=== PATIENT | female | born 1990 | race African-American/Black ===

== ENCOUNTER 2017-01-18 18:36 | Emergency (ER) | payer SELFPAY ==
[~2017-01-18] VITALS: Ht 152.4 cm; Wt 50.0 kg
[~2017-01-18 18:36] MED LIST: BACT PO; BAYEMIS; GLUCOMETER XX; GLUCOMTESTSTRIPS XX; LEVEMIR SQ; LEVO100T4 PO; NOVORP2 SQ; PRED20 PO
[2017-01-18 18:38] VITALS: BP 107/73; PULSE 78; RESP 18; TEMP 97.7; O2SAT 97
[2017-01-18] MEDS ORDERED: LEVO100T5 PO (20:13)
--- NOTE | 2017-01-18 20:16 | PD ---
HPI Chief Complaint: Medication Refill Request Time Seen by Provider: 20:05 Travel History International Travel<30 days: No Contact w/Intl Traveler<30days: No Traveled to known affect area: No History of Present Illness HPI 26 year old female presents requesting medication refill. She is requesting a refill of her levothyroxine which she takes for hypothyroidism. She does not remember when she ran out of it. She is uncertain of her dose but per chart review the last time she was here in January 2016 she was on 100 g of Synthroid on a daily basis. She has no medical complaints at this time. PFSH Past Medical History Arthritis: No Asthma: Yes Autoimmune Disease: No Blood Disorders: No Anxiety: No Depression: No Heart Rhythm Problems: No Cancer: No Cardiovascular Problems: No High Cholesterol: No Chemotherapy: No Chest Pain: Yes Congestive Heart Failure: No COPD: No Cerebrovascular Accident: No Cystic Fibrosis: No Diabetes: Yes Diminished Hearing: No Endocrine: Yes Gastrointestinal Disorders: No GERD: No Glaucoma: No Gout: Yes (denies) Genitourinary: No Headaches: No Hepatitis: No Hiatal Hernia: No Hypertension: No Immune Disorder: No Kidney Stones: No Musculoskeletal: No Neurologic: No Psychiatric: No Reproductive: Yes Respiratory: Yes Migraines: No Myocardial Infarction: No Radiation Therapy: Yes (FOR THYROID) Renal Failure: No Seizures: No Sickle Cell Disease: No Sleep Apnea: No Thyroid Disease: Yes Ulcer: No PNEUMOCCOCAL Vaccine (Year): 2 ?: Not : 2 Para: 2 Past Surgical History Abdominal Surgery: No AICD: No Appendectomy: No Arteriovenous Shunt: No Cardiac Surgery: No Section: Yes Cholecystectomy: No Ear Surgery: No Endocrine Surgery: No Eye Surgery: No Genitourinary Surgery: No Gynecologic Surgery: No Insulin Pump: No Joint Replacement: No Neurologic Surgery: No Oral Surgery: No Pacemaker: No Thoracic Surgery: No Other Surgery: No Social History Alcohol Use: No Tobacco Use: Yes (2 cig daily) Substance Use: No Allergies-Medications (Allergen,Severity, Reaction): Coded Allergies: Seafood (Verified Allergy, Severe, ITCHING, 12/19/14) denies allergy at this time Reported Meds & Prescriptions Reported Meds & Active Scripts Active Deltasone 20 Mg Tab (Prednisone) 20 Mg Tab 40 Mg PO DAILY Levemir (Insulin Detemir) Inj 10 Units SQ HS 30 Days Levothyroxine 100 mcg (Levothyroxine Sodium) 100 Mcg Tab 100 Mcg PO DAILY Bactrim (Trimethoprim/Sulfamethoxazole) 80 Mg/400 Mg Tab 2 Tab PO BID 3 Days Pablo Microlet Lancets (Lancets) Lancets Mis Box Glucometer Test Strips (Glucomteststrips) Box 1 Box XX Glucometer Kit 1 Kit XX Reported Novolin R (Insulin Human Regular) 100 Units/Ml Inj 5-15 Units SQ DIRECTED IF B/S 150-200=5 UNITS, 201-300=10 UNITS,301-400=15 UNITS Review of Systems General / Constitutional: Positive: Other (requests medication refill) Cardiovascular: No: Chest Pain or Discomfort, Syncope Respiratory: No: Shortness of Breath Physical Exam Narrative GENERAL: Well-developed well-nourished female in no acute distress SKIN: Warm and dry. HEAD: Atraumatic. Normocephalic. EYES: Pupils equal and round. No scleral icterus. No injection or drainage. ENT: No nasal bleeding or discharge. Mucous membranes pink and moist. NECK: Trachea midline. No JVD. CARDIOVASCULAR: Regular rate and rhythm. No murmur appreciated. RESPIRATORY: No accessory muscle use. Clear to auscultation. Breath sounds equal bilaterally. GASTROINTESTINAL: Abdomen soft, non-tender, nondistended. Hepatic and splenic margins not palpable. NEUROLOGICAL: Awake and alert. No obvious cranial nerve deficits. Motor grossly within normal limits. Normal speech. PSYCHIATRIC: Appropriate mood and affect; insight and judgment normal. Data Data Last Documented VS Vital Signs Date Time Temp Pulse Resp B/P Pulse Ox O2 Delivery O2 Flow Rate FiO2 01/18/17 18:38 97.7 78 18 107/73 97 [facility] Medical Decision Making Medical Screen Exam Complete: Yes Emergency Medical Condition: Yes Medical Record Reviewed: Yes Differential Diagnosis Medication refill, hypothyroidism, medication noncompliance Narrative Course The patient will be given a refill of her Synthroid however she is strongly encouraged to follow-up with her primary care physician for long-term management of this chronic condition. Diagnosis Primary Impression: Medication refill Additional Instructions: Follow-up with a primary care physician. Hypothyroidism is a chronic illness that will require chronic managing. Return for any emergent medical conditions. Med/Other Pt SpecificInfo: Prescription(s) given Scripts Levothyroxine 100 Mcg [id number] Mcg PO DAILY #60 TAB Ref 0 Prov:Cassi Pan DO 01/18/17 Disposition: 01 DISCHARGE HOME Condition: Stable Dano Dangelo Jan 18, 2017 20:15
[2017-01-18] MEDS ORDERED: NOVORP2 SQ (20:21)
[2017-01-18] MEDS ORDERED: LEVEMIR SQ (20:21)
== END 2017-01-18 21:03 | disposition home or self-care (01) ==
LOC: NETRI 18:36
DX: E03.9 Hypothyroidism, unspecified (principal); E11.9 Type 2 diabetes mellitus without complications; Z79.4 Long term (current) use of insulin; Z76.0 Encounter for issue of repeat prescription
CPT/HCPCS: 99281

== ENCOUNTER 2017-10-16 19:21 | Emergency (ER) | payer SELFPAY ==
[~2017-10-16] VITALS: Ht 149.9 cm; Wt 55.0 kg
[~2017-10-16 19:21] MED LIST changes: -BACT PO; -BAYEMIS; -GLUCOMETER XX; -GLUCOMTESTSTRIPS XX; -LEVO100T4 PO; +LEVO100T5 PO; -PRED20 PO
[2017-10-16 19:24] VITALS: BP 98/67; PULSE 100; RESP 16; TEMP 98; O2SAT 93
[2017-10-16] MEDS ORDERED: LANTUS2P SQ ×2 (20:52→21:03)
[2017-10-16] MEDS ORDERED: INSULIN DETEMIR 100 UNITS/ML VIAL SQ STA (20:57)
[2017-10-16] MEDS ORDERED: NOVORP2 SQ (21:03)
--- NOTE | 2017-10-16 21:03 | PD ---
HPI Chief Complaint: Medication Refill Request Time Seen by Provider: 20:47 Travel History International Travel<30 days: No Contact w/Intl Traveler<30days: No Traveled to known affect area: No History of Present Illness HPI 27 year-old woman, presents emergency department requesting refill on her insulin because she ran out. She's having pharmacy issues. Denies any complaints. History of diabetes. She reports also start metformin as well. Otherwise complaint. Last had her insulin at 8 AM this morning. No recent illness or injury. No other complaints. History Past Medical History Narrative Medical Hypothyroidism Diabetes Tetanus Vaccination: Unknown PNEUMOCCOCAL Vaccine (Year): 2 LMP: 10/09/2017 : 2 Para: 2 Social History Alcohol Use: No Tobacco Use: Yes (2 cig daily) Allergies-Medications (Allergen,Severity, Reaction): Coded Allergies: Fish Containing Products (Unverified Allergy, Severe, ITCHING, 10/16/17) denies allergy at this time Reported Meds & Prescriptions Reported Meds & Active Scripts Active Levothyroxine (Levothyroxine Sodium) 100 Mcg Tab 100 Mcg PO DAILY Reported Lantus Inj (Insulin Glargine) 1,000 Unit/10 Ml Vial 1 Units SQ HS Novolin R Inj (Insulin Human Regular) 1,000 Unit/10 Ml Vial 2-10 Units SQ TIDAC PRN IMPORTANT TO EAT A MEAL WITHIN 30-60 MINUTES OF DOSING Levemir Inj (Insulin Detemir) 1,000 unit/ 10 ML Vial 10 Units SQ HS Do not mix with any other Insulin. Review of Systems Except as stated in HPI: all other systems reviewed are Neg Physical Exam Narrative GENERAL: Well-appearing 27 year-old woman, no acute distress. SKIN: Focused skin assessment warm/dry. HEAD: Atraumatic. Normocephalic. EYES: Pupils equal and round. No scleral icterus. No injection or drainage. ENT: No nasal bleeding or discharge. Mucous membranes pink and moist. NECK: Trachea midline. No JVD. CARDIOVASCULAR: Regular rate and rhythm. No murmur appreciated. RESPIRATORY: No accessory muscle use. Clear to auscultation. Breath sounds equal bilaterally. GASTROINTESTINAL: Abdomen soft, non-tender, nondistended. Hepatic and splenic margins not palpable. MUSCULOSKELETAL: No obvious deformities. No clubbing. No cyanosis. No edema. NEUROLOGICAL: Awake and alert. No obvious cranial nerve deficits. Motor grossly within normal limits. Normal speech. PSYCHIATRIC: Appropriate mood and affect; insight and judgment normal. Data Data Last Documented VS Vital Signs Date Time Temp Pulse Resp B/P (MAP) Pulse Ox O2 Delivery O2 Flow Rate FiO2 10/16/17 19:24 98.0 100 16 98/67 (77) 93 Room Air Orders Orders Insulin Detemir Inj (Levemir Inj) (10/16/17 20:57) [facility] Medical Decision Making Medical Screen Exam Complete: Yes Emergency Medical Condition: Yes Differential Diagnosis Diabetes, out of medications, infection, other Narrative Course Medical decision making parents 27 year-old woman, medications, due to see her primary doctor on Wednesday. We'll give her a refill on her insulin. Diagnosis Primary Impression: Insulin dependent diabetes mellitus Additional Instructions: Continue insulin as previously prescribed. Return to the emergency department for any new or worsening symptoms. Med/Other Pt SpecificInfo: Prescription(s) given Scripts Insulin Glargine Inj (Lantus Inj) 1,000 Unit/10 Ml Vial 30 UNITS SQ HS for Blood Sugar Management, #1 VIAL 0 Refills Prov: Bentley Mendez MD 10/16/17 Insulin Human Regular Inj (Novolin R Inj) 1,000 Unit/10 Ml Vial 2-10 UNITS SQ TIDAC Y for Blood Sugar Management, #10 ML 0 Refills IMPORTANT TO EAT A MEAL WITHIN 30-60 MINUTES OF DOSING Prov: Bentley Mendez MD 10/16/17 Disposition: 01 DISCHARGE HOME Condition: Stable Bentley Mendez MD Oct 16, 2017 21:03
== END 2017-10-16 21:12 | disposition home or self-care (01) ==
LOC: NEPE 19:21
DX: E11.9 Type 2 diabetes mellitus without complications (principal); E03.9 Hypothyroidism, unspecified; F17.210 Nicotine dependence, cigarettes, uncomplicated; Z79.4 Long term (current) use of insulin; Z79.899 Other long term (current) drug therapy
CPT/HCPCS: 96372

== ENCOUNTER 2018-01-04 14:16 | Observation (INO) | payer MEDICAID ==
[~2018-01-04] VITALS: Ht 149.9 cm; Wt 45.5 kg
[~2018-01-04 14:16] MED LIST changes: +LANTUS2P SQ
[2018-01-04 14:30] VITALS: BP 98/57; PULSE 100; RESP 18; TEMP 98.9; O2SAT 99
[2018-01-04 15:31] LABS: BACTERIA, URINE MOD /hpf; BILIRUBIN, URINE NEG (NEG); BLOOD, URINE TRACE (NEG); GLUCOSE,URINE 1000 mg/dL (NEG); KETONE, URINE 80 mg/dL (NEG); NITRITE,URINE POS (NEG); PH, URINE 5.5 (5.0-8.5); SQUAMOUS EPITHELIAL CELL URINE 73 /hpf (0-5); TRANSITIONAL EPI CELLS, URINE <1 /hpf; URINE COLOR LIGHT-YELLOW (YELLW/STRAW); URINE LEUKOCYTE ESTERASE SMALL (NEG)
[2018-01-04 15:33] LABS: AST (GOT) 6 U/L (15-37); BICARBONATE 26.4 MEQ/L (21.0-32.0); BLOOD UREA NITROGEN 13 MG/DL (7-18); CALCIUM 9.1 MG/DL (8.5-10.1); CHLORIDE 92 MEQ/L (98-107); CREATININE 1.18 MG/DL (0.50-1.00); GLOMERULAR FILTRATION RATE 66 ML/MIN (>89); GLUCOSE,RANDOM 393 MG/DL (74-106); SODIUM (NA) 130 MEQ/L (136-145)
[2018-01-04 15:35] LABS: AUTOMATED NEUTROPHIL # 12.5 TH/MM3 (1.8-7.7); BASOPHIL # 0.1 TH/MM3 (0-0.2); BASOPHIL % 0.5 % (0.0-2.0); EOSINOPHIL % 0.3 % (0.0-4.0); HEMATOCRIT 29.3 % (35.0-46.0); HEMOGLOBIN 10.3 GM/DL (11.6-15.3); LYMPH % 9.4 % (9.0-44.0); LYMPHOCYTE # 1.4 TH/MM3 (1.0-4.8); MEAN CELL VOLUME 87.3 FL (80.0-100.0); MEAN CORPUSCULAR HEMOGLOBIN 30.7 PG (27.0-34.0); MEAN CORPUSCULAR HGB CONC 35.2 % (32.0-36.0); MEAN PLATELET VOLUME 7.7 FL (7.0-11.0); MONO % 4.5 % (0.0-8.0); MONOCYTE # 0.7 TH/MM3 (0-0.9); NEUT % 85.3 % (16.0-70.0); PLATELET COUNT 541 TH/MM3 (150-450); RED BLOOD COUNT 3.35 MIL/MM3 (4.00-5.30); RED CELL DISTRIBUTION WIDTH 15.1 % (11.6-17.2); WHITE BLOOD COUNT 14.6 TH/MM3 (4.0-11.0)
[2018-01-04 15:44] LABS: ALKALINE PHOSPHATASE 190 U/L (45-117); ALT (GPT) 11 U/L (10-53); FREE T4 0.69 NG/DL (0.76-1.46); TOTAL BILIRUBIN ADULT 0.5 MG/DL (0.2-1.0); TOTAL PROTEIN 7.8 GM/DL (6.4-8.2)
[2018-01-04 17:05] VITALS: BP 90/55; PULSE 84; RESP 18; TEMP 98.1; O2SAT 100
[2018-01-04] MEDS ORDERED: INSULIN HUMAN REGULAR 1,000 UNITS/10 ML VIAL IV PUSH ONE (17:30)
[2018-01-04] MEDS ORDERED: SODIUM CHLOR 0.9% 1000 ML INJ 1,000 ML IV ONE ×2 (17:30)
--- NOTE | 2018-01-04 17:39 | PD ---
HPI Chief Complaint: Medical Clearance Time Seen by Provider: 17:25 Travel History International Travel<30 days: No Contact w/Intl Traveler<30days: No Traveled to known affect area: No History of Present Illness HPI 27-year-old female with history of hypothyroidism and type 1 diabetes presents to the emergency room requesting medication refill. Patient states she has been using a dirty needle since last time she came here because her insurance will not allow any refills. States she has been struggling for the past 2 years to find a primary care doctor to accept her insurance and has had difficulty controlling her diabetes but states she will not change her insurance. Reports body aches from head to toe that are "10/10" and headache. She denies abdominal pain, nausea, vomiting, dysuria, urgency, frequency, fever , or chills. Patient is a poor historian. She became cantankerous throughout the history and refused to answer anymore questions stating "I am sick and that' s all I'm going to say." Her last menstrual cycle was in November. PFSH Past Medical History Arthritis: No Asthma: Yes Autoimmune Disease: No Blood Disorders: No Anxiety: No Depression: No Heart Rhythm Problems: No Cancer: No Cardiovascular Problems: No High Cholesterol: No Chemotherapy: No Chest Pain: Yes Congestive Heart Failure: No COPD: No Cerebrovascular Accident: No Cystic Fibrosis: No Diabetes: Yes Patient Takes Glucophage: No Diminished Hearing: No Endocrine: Yes Gastrointestinal Disorders: No GERD: No Glaucoma: No Gout: Yes (denies) Genitourinary: No Headaches: No Hepatitis: No Hiatal Hernia: No Hypertension: No Immune Disorder: No Kidney Stones: No Musculoskeletal: No Neurologic: No Psychiatric: No Reproductive: Yes Respiratory: Yes Immunizations Current: Yes Migraines: No Myocardial Infarction: No Radiation Therapy: Yes (FOR THYROID) Renal Failure: No Seizures: No Sickle Cell Disease: No Sleep Apnea: No Thyroid Disease: Yes Ulcer: No Tetanus Vaccination: < 5 Years Influenza Vaccination: No PNEUMOCCOCAL Vaccine (Year): 2 ?: Unknown LMP: NOV 2017 : 2 Para: 2 Past Surgical History Surgical History: No Previous Surgery Abdominal Surgery: No AICD: No Appendectomy: No Arteriovenous Shunt: No Cardiac Surgery: No Section: Yes Cholecystectomy: No Ear Surgery: No Endocrine Surgery: No Eye Surgery: No Genitourinary Surgery: No Gynecologic Surgery: No Insulin Pump: No Joint Replacement: No Neurologic Surgery: No Oral Surgery: No Pacemaker: No Thoracic Surgery: No Other Surgery: No Social History Alcohol Use: No Tobacco Use: Yes (2 cig daily) Substance Use: Yes (MARIJUANA) Allergies-Medications (Allergen,Severity, Reaction): Coded Allergies: Fish Containing Products (Unverified Allergy, Severe, ITCHING, 01/04/18) denies allergy at this time Reported Meds & Prescriptions Reported Meds & Active Scripts Active Lantus Inj (Insulin Glargine) 1,000 Unit/10 Ml Vial 30 Units SQ HS Novolin R Inj (Insulin Human Regular) 1,000 Unit/10 Ml Vial 2-10 Units SQ TIDAC PRN IMPORTANT TO EAT A MEAL WITHIN 30-60 MINUTES OF DOSING Levothyroxine (Levothyroxine Sodium) 100 Mcg Tab 100 Mcg PO DAILY Reported Levemir Inj (Insulin Detemir) 1,000 unit/ 10 ML Vial 10 Units SQ HS Do not mix with any other Insulin. Review of Systems Except as stated in HPI: all other systems reviewed are Neg Physical Exam Narrative GENERAL: Well-nourished, well-developed female no acute distress. Afebrile. Ambulatory. Resting comfortably in bed. SKIN: Focused skin assessment warm/dry. HEAD: Normocephalic. EYES: No scleral icterus. No injection or drainage. NECK: Supple, trachea midline. No JVD or lymphadenopathy. CARDIOVASCULAR: Regular rate and rhythm without murmurs, gallops, or rubs. RESPIRATORY: Breath sounds equal bilaterally. No accessory muscle use. GASTROINTESTINAL: Abdomen soft, non-tender, nondistended. Data Data Last Documented VS Vital Signs Date Time Temp Pulse Resp B/P (MAP) Pulse Ox O2 Delivery O2 Flow Rate FiO2 01/04/18 17:05 98.1 84 18 90/55 (67) 100 Room Air Orders Orders Complete Blood Count With Diff (01/04/18 14:33) Comprehensive Metabolic Panel (01/04/18 14:33) Lipase (01/04/18 14:33) Urinalysis - C+S If Indicated (01/04/18 14:33) Ed Urine Pregnancytest Poc (01/04/18 14:33) Thyroid Stimulating Hormone (01/04/18 14:33) Free Thyroxine (T4) (01/04/18 14:33) Beta Hydroxybutyrate (Acetone) (01/04/18 14:33) Urine Culture (01/04/18 14:43) Sodium Chlor 0.9% 1000 Ml Inj (Ns 1000 M (01/04/18 17:30) Sodium Chlor 0.9% 1000 Ml Inj (Ns 1000 M (01/04/18 17:30) Insulin Human Regular Inj (Novolin R Inj (01/04/18 17:30) Ceftriaxone Inj (Rocephin Inj) (01/04/18 17:45) Admit Order (Ed Use Only) (01/04/18 18:04) Labs Laboratory Tests Test 01/04/18 14:43 01/04/18 14:47 Urine Color LIGHT-YELLOW Urine Turbidity CLOUDY Urine pH 5.5 Urine Specific [place] 1.023 Urine Protein TRACE mg/dL Urine Glucose (UA) 1000 mg/dL Urine Ketones 80 mg/dL Urine Occult Blood TRACE Urine Nitrite POS Urine Bilirubin NEG Urine Urobilinogen LESS THAN 2.0 MG/DL Urine Leukocyte Esterase SMALL Urine RBC 7 /hpf Urine WBC 33 /hpf Urine Squamous Epithelial Cells 73 /hpf Urine Transitional Epithelial Cells <1 /hpf Urine Bacteria MOD /hpf Microscopic Urinalysis Comment CULTURE INDICATED White Blood Count 14.6 TH/MM3 Red Blood Count 3.35 MIL/MM3 Hemoglobin 10.3 GM/DL Hematocrit 29.3 % Mean Corpuscular Volume 87.3 FL Mean Corpuscular Hemoglobin 30.7 PG Mean Corpuscular Hemoglobin Concent 35.2 % Red Cell Distribution Width 15.1 % Platelet Count 541 TH/MM3 Mean Platelet Volume 7.7 FL Neutrophils (%) (Auto) 85.3 % Lymphocytes (%) (Auto) 9.4 % Monocytes (%) (Auto) 4.5 % Eosinophils (%) (Auto) 0.3 % Basophils (%) (Auto) 0.5 % Neutrophils # (Auto) 12.5 TH/MM3 Lymphocytes # (Auto) 1.4 TH/MM3 Monocytes # (Auto) 0.7 TH/MM3 Eosinophils # (Auto) 0.0 TH/MM3 Basophils # (Auto) 0.1 TH/MM3 CBC Comment DIFF FINAL Differential Comment Blood Urea Nitrogen 13 MG/DL Creatinine 1.18 MG/DL Random Glucose 393 MG/DL Total Protein 7.8 GM/DL Albumin 3.0 GM/DL Calcium Level 9.1 MG/DL Alkaline Phosphatase 190 U/L Aspartate Amino Transf (AST/SGOT) 6 U/L Alanine Aminotransferase (ALT/SGPT) 11 U/L Total Bilirubin 0.5 MG/DL Sodium Level 130 MEQ/L Potassium Level 4.4 MEQ/L Chloride Level 92 MEQ/L Carbon Dioxide Level 26.4 MEQ/L Anion Gap 12 MEQ/L Estimat Glomerular Filtration Rate 66 ML/MIN Lipase 80 U/L Free Thyroxine 0.69 NG/DL Thyroid Stimulating Hormone 3rd Gen 30.500 uIU/ML B-Hydroxybutyrate 3.11 MMOL/L MDM Medical Decision Making Medical Screen Exam Complete: Yes Emergency Medical Condition: Yes Medical Record Reviewed: Yes Differential Diagnosis Medication noncompliance, medication refill, DKA, diabetes, hypothyroidism, acute kidney injury, UTI Narrative Course 27-year-old female with history of hypothyroidism and type 1 diabetes presents to the emergency room requesting medication refill. She had her medication refilled in September and has not had refill since then. She denies any significant complaints except for generalized body aches. Physical exam is reassuring. Patient resting comfortably, sitting up in bed. No increased work of breathing. No nausea or vomiting. Abdomen soft, nontender. There is no pretibial edema. IV access established basic labs obtained. CBC shows mild leukocytosis and anemia. CMP is remarkable for sodium of 130, creatinine of 1.18, glucose of 393, and TSH of 30.5. Acetone is 3.11. UA shows evidence of infection. Patient was given 2 L of fluids, 8 units of IV insulin, and 1 g of Rocephin. Patient will be admitted for mild DKA, UTI, and hypothyroidism. She understands and agrees to plan. I spoke to Dr. Reyes who agrees to accept this patient to his service. Admitting Information Admitting Physician Requests: Observation Disposition: 01 DISCHARGE HOME Condition: Stable Deanne Titus Jan 04, 2018 17:39
[2018-01-04] MEDS ORDERED: cefTRIAXone INJ 1,000 MG in SODIUM CHLORIDE 0.9% INJ 100 ML IV ONE (17:45)
[2018-01-04] MEDS ORDERED: MAGNESIUM HYDROXIDE SUSP 30 ML CUP PO PRN (18:30)
[2018-01-04] MEDS ORDERED: BISACODYL 10 MG SUPP RECTAL PRN (18:30)
[2018-01-04] MEDS ORDERED: LACTULOSE SYRUP 20 GM/30 ML CUP PO PRN (18:30)
[2018-01-04] MEDS ORDERED: ONDANSETRON HCL 4 MG/2 ML VIAL IVP PRN (18:30)
[2018-01-04] MEDS ORDERED: SENNOSIDES 8.6 MG TAB PO PRN (18:30)
[2018-01-04] MEDS ORDERED: NALOXONE HCL 0.4 MG/ML AMP IV PUSH PRN (18:30)
[2018-01-04] MEDS ORDERED: SODIUM CHLORIDE 0.9% FLUSH 10 ML FLUSH IV FLUSH PRN (18:30)
--- NOTE | 2018-01-04 18:33 | HHI.HP ---
[facility] Primary Care Physician Admission Diagnosis DKA, hypothyroidism, urinary tract infection Diagnoses: (1) UTI (lower urinary tract infection) (2) Hypothyroidism (3) Diabetes mellitus Chief Complaint: Does not feel well Travel History International Travel<30 Days: No Contact w/Intl Traveler <30 Da: No Traveled to Known Affected Are: No History of Present Illness 27-year-old female with PMH of DM I hypothyroidism who presents to the emergency department with complaints of back pain and feeling sick. She also endorses chills, denies any fever, nausea, vomiting, diarrhea. She tells me that she is "just not feeling good". States "all I wanted was refills on my medications and now I get all this, it was a mistake coming here" She is visibly irritated and is only answering some of my questions. She is unable to tell me when her back pain began, states it has been there for as long as she can remember. She has been taking Ibuprofen at home with no relief. She denies any dysuria, hematuria, or foul smelling urine. She denies any recent injury to her back or trauma. Reports that she has also been having constipation unable to tell me when her last bowel movement. She denies any diarrhea, black, tarry, or bloody stools. She complains of abdominal pain and generalized pain, rates this 10/10. She tell me "that is all I want to say, I don't want to talk anymore". Review of Systems Except as stated in HPI: all other systems reviewed are Neg Past Family Social History Past Medical History Hypothyroidism DM I Past Surgical History Denies Reported Medications Reported Meds & Active Scripts Active Lantus Inj (Insulin Glargine) 1,000 Unit/10 Ml Vial 30 Units SQ HS Novolin R Inj (Insulin Human Regular) 1,000 Unit/10 Ml Vial 2-10 Units SQ TIDAC PRN IMPORTANT TO EAT A MEAL WITHIN 30-60 MINUTES OF DOSING Levothyroxine (Levothyroxine Sodium) 100 Mcg Tab 100 Mcg PO DAILY Reported Levemir Inj (Insulin Detemir) 1,000 unit/ 10 ML Vial 10 Units SQ HS Do not mix with any other Insulin. Allergies: Coded Allergies: Fish Containing Products (Unverified Allergy, Severe, ITCHING, 01/04/18) denies allergy at this time Family History Denies past family history Social History Tobacco: denies Alcohol: denies Illicit drug use: marijuana, daily Physical Exam Vital Signs Vital Signs Date Time Temp Pulse Resp B/P (MAP) Pulse Ox O2 Delivery O2 Flow Rate FiO2 01/04/18 17:05 98.1 84 18 90/55 (67) 100 Room Air 01/04/18 17:04 18 01/04/18 14:30 98.9 100 18 98/57 (71) 99 Physical Exam GENERAL: This is a well-nourished, well-developed patient, female, visibly uncomfortable. SKIN: No rashes, ecchymoses or lesions. Cool and dry. HEAD: Atraumatic. Normocephalic. EYES: Pupils equal round and reactive. No scleral icterus. No injection or drainage. ENT: Nose without bleeding, purulent drainage. Throat without erythema. Uvula midline. Airway patent. NECK: Trachea midline. No JVD. Supple, nontender, no meningeal signs. CARDIOVASCULAR: Regular rate and rhythm without murmurs, gallops, or rubs. RESPIRATORY: Clear to auscultation. Breath sounds equal bilaterally. No wheezes , rales, or rhonchi. Respiratory rate regular and unlabored. GASTROINTESTINAL: Abdomen soft, generalized tenderness, nondistended. Active bowel sounds. MUSCULOSKELETAL: Extremities without clubbing, cyanosis, or edema. No joint tenderness, effusion, or edema noted. Bilateral flank tenderness. NEUROLOGICAL: Awake and alert. Cranial nerves grossly intact. Motor and sensory grossly within normal limits. 5/5 muscle strength in all muscle groups. Normal speech. Laboratory Laboratory Tests Test 01/04/18 14:43 01/04/18 14:47 Urine Color LIGHT-YELLOW Urine Turbidity CLOUDY Urine pH 5.5 Urine Specific Stephen 1.023 Urine Protein TRACE Urine Glucose (UA) 1000 Urine Ketones 80 Urine Occult Blood TRACE Urine Nitrite POS Urine Bilirubin NEG Urine Urobilinogen LESS THAN 2.0 Urine Leukocyte Esterase SMALL Urine RBC 7 Urine WBC 33 Urine Squamous Epithelial Cells 73 Urine Transitional Epithelial Cells <1 Urine Bacteria MOD Microscopic Urinalysis Comment CULTURE INDICATED White Blood Count 14.6 Red Blood Count 3.35 Hemoglobin 10.3 Hematocrit 29.3 Mean Corpuscular Volume 87.3 Mean Corpuscular Hemoglobin 30.7 Mean Corpuscular Hemoglobin Concent 35.2 Red Cell Distribution Width 15.1 Platelet Count 541 Mean Platelet Volume 7.7 Neutrophils (%) (Auto) 85.3 Lymphocytes (%) (Auto) 9.4 Monocytes (%) (Auto) 4.5 Eosinophils (%) (Auto) 0.3 Basophils (%) (Auto) 0.5 Neutrophils # (Auto) 12.5 Lymphocytes # (Auto) 1.4 Monocytes # (Auto) 0.7 Eosinophils # (Auto) 0.0 Basophils # (Auto) 0.1 CBC Comment DIFF FINAL Differential Comment Blood Urea Nitrogen 13 Creatinine 1.18 Random Glucose 393 Total Protein 7.8 Albumin 3.0 Calcium Level 9.1 Alkaline Phosphatase 190 Aspartate Amino Transf (AST/SGOT) 6 Alanine Aminotransferase (ALT/SGPT) 11 Total Bilirubin 0.5 Sodium Level 130 Potassium Level 4.4 Chloride Level 92 Carbon Dioxide Level 26.4 Anion Gap 12 Estimat Glomerular Filtration Rate 66 Lipase 80 Free Thyroxine 0.69 Thyroid Stimulating Hormone 3rd Gen 30.500 B-Hydroxybutyrate 3.11 Date/Time Source Procedure Growth Status 01/04/18 14:43 Urine Clean Catch Urine Culture Pending Received Result Diagram: 01/04/18 1447 01/04/18 1447 Caprini VTE Risk Assessment Caprini VTE Risk Assessment: No/Low Risk (score <= 1) Caprini Risk Assessment Model Point Value = 1 Point Value = 2 Point Value = 3 Point Value = 5 Age 41-60 Minor surgery BMI > 25 kg/m2 Swollen legs Varicose veins or History of unexplained or recurrent spontaneous Oral contraceptives or hormone replacement Sepsis (< 1 month) Serious lung disease, including pneumonia (< 1 month) Abnormal pulmonary function Acute myocardial infarction Congestive heart failure (< 1 month) History of inflammatory bowel disease Medical patient at bed rest Age 61-74 Arthroscopic surgery Major open surgery (> 45 min) Laparoscopic surgery (> 45 min) Malignancy Confined to bed (> 72 hours) Immobilizing plaster cast Central venous access Age >= 75 History of VTE Family history of VTE Factor V Leiden Prothrombin [id number] Lupus anticoagulant Anticardiolipin antibodies Elevated serum homocysteine Heparin-induced thrombocytopenia Other congenital or acquired thrombophilia Stroke (< 1 month) Elective arthroplasty Hip, pelvis, or leg fracture Acute spinal cord injury (< 1 month) Prophylaxis Regimen Total Risk Factor Score Risk Level Prophylaxis Regimen 0-1 Low Early ambulation 2 Moderate Order ONE of the following: *Sequential Compression Device (SCD) *Heparin 5000 units SQ BID 3-4 Higher Order ONE of the following medications: *Heparin 5000 units SQ TID *Enoxaparin/Lovenox 40 mg SQ daily (WT < 150 kg, CrCl > 30 mL/min) *Enoxaparin/Lovenox 30 mg SQ daily (WT < 150 kg, CrCl > 10-29 mL/min) *Enoxaparin/Lovenox 30 mg SQ BID (WT < 150 kg, CrCl > 30 mL/min) AND/OR *Sequential Compression Device (SCD) 5 or more Highest Order ONE of the following medications: *Heparin 5000 units SQ TID (Preferred with Epidurals) *Enoxaparin/Lovenox 40 mg SQ daily (WT < 150 kg, CrCl > 30 mL/min) *Enoxaparin/Lovenox 30 mg SQ daily (WT < 150 kg, CrCl > 10-29 mL/min) *Enoxaparin/Lovenox 30 mg SQ BID (WT < 150 kg, CrCl > 30 mL/min) AND *Sequential Compression Device (SCD) Assessment and Plan Assessment and Plan 27-year-old -[place] female with past medical history of diabetes mellitus I, hypothyroidism, and marijuana abuse who presents to the emergency department with complaints of chills, lower back pain/flank pain. Patient also presented to the emergency department requesting refills on her medications as she has been out of her levothyroxine and insulin for some time now. UTI-likely E.coli - UA positive for occult blood, leukocyte esterase, WBCs, follow urine cultures -CBC with leukocytosis, neutrophil count 85.3, very slight tachycardia with heart rate of 100, afebrile - Patient given Ceftriaxone IV and emergency department, continue IV ceftriaxone and admitted to observation unit, likely transition to oral antibiotics tomorrow -What Cheer as needed for pain Diabetes mellitus I -Glucose on admission 393, patient was provided with 8 units of regular insulin IV. UA positive for ketones and glucose of 1000, B-hydroxybutyrate 3.11 - ABG reviewed, will start ADA diet, Levemir 10 units HS -NovoLog insulin sliding scale with Accu-Cheks DEUCE -Creatinine at admission 1.18, GFR 66 -Patient was provided with 2 L of IV fluids in emergency department -Continue normal saline at 42 mL's per hour, recheck lab work in the a.m. Hypothyroidism -TSH 30.5, free T4 0.69 likely abnormal due to noncompliance with levothyroxine -Restart levothyroxine 100 MCG's, will need to have recheck in 6 weeks DVT prophylaxis-early ambulation Lucia Claros Jan 04, 2018 18:33
[2018-01-04] MEDS ORDERED: ACETAMINOPHEN/HYDROcodone 325 MG/5 MG TAB PO PRN (18:45)
[2018-01-04] MEDS ORDERED: ACETAMINOPHEN 325 MG TAB PO PRN (18:45)
[2018-01-04] MEDS ORDERED: GLUCAGON 1 MG/ML VIAL OTHER PRN (18:45)
[2018-01-04] MEDS ORDERED: DEXTROSE 50% IN WATER 50 ML VIAL(D50) IV PUSH PRN (18:45)
[2018-01-04 19:12] VITALS: BP 87/51; PULSE 90; RESP 15; O2SAT 100
[2018-01-04 19:24] VITALS: BP 96/58; PULSE 89; RESP 15; O2SAT 100
[2018-01-04 20:21] VITALS: BP 99/59; PULSE 94; RESP 15; O2SAT 98
[2018-01-04] MEDS: SODIUM CHLOR 0.9% 1000 ML INJ 1,000 ML IV SCH (20:26)
[2018-01-04] MEDS: SODIUM CHLORIDE 0.9% FLUSH 10 ML FLUSH IV FLUSH SCH (21:16)
[2018-01-04] MEDS: DOCUSATE SODIUM 50 MG/SENNA 8.6 MG TAB PO SCH (21:30)
[2018-01-04] MEDS: INSULIN ASPART SUPPLEMENTAL SCALE SQ SCH (21:31)
[2018-01-04] MEDS: INSULIN DETEMIR 100 UNITS/ML VIAL SQ SCH (21:31)
[2018-01-04 22:40] VITALS: BP 96/55; PULSE 98; RESP 15; O2SAT 99
[2018-01-05] VITALS (9 sets, daily range): BP systolic 79–96; BP diastolic 52–61; PULSE 75–96; RESP 15–20; TEMP 98.1–100.5; O2SAT 97–100
[2018-01-05] MEDS ORDERED: LEVOTHYROXINE SODIUM 100 MCG TAB PO SCH (06:00)
[2018-01-05] MEDS: ACETAMINOPHEN/HYDROcodone 325 MG/7.5 MG TAB PO PRN ×2 (06:58→15:20)
[2018-01-05 07:04] LABS: ALBUMIN 2.4 GM/DL (3.4-5.0); ALKALINE PHOSPHATASE 162 U/L (45-117); ALT (GPT) 9 U/L (10-53); AST (GOT) 7 U/L (15-37); BICARBONATE 25.4 MEQ/L (21.0-32.0); BLOOD UREA NITROGEN 13 MG/DL (7-18); CALCIUM 8.3 MG/DL (8.5-10.1); CHLORIDE 102 MEQ/L (98-107); CREATININE 0.83 MG/DL (0.50-1.00); GLOMERULAR FILTRATION RATE 100 ML/MIN (>89); GLUCOSE,RANDOM 76 MG/DL (74-106); SODIUM (NA) 137 MEQ/L (136-145); TOTAL BILIRUBIN ADULT 0.3 MG/DL (0.2-1.0); TOTAL PROTEIN 6.6 GM/DL (6.4-8.2)
[2018-01-05] MEDS: INSULIN ASPART SUPPLEMENTAL SCALE SQ SCH ×4 (08:00→21:46)
[2018-01-05] MEDS: SODIUM CHLORIDE 0.9% FLUSH 10 ML FLUSH IV FLUSH SCH ×2 (09:00→21:00)
[2018-01-05] MEDS: DOCUSATE SODIUM 50 MG/SENNA 8.6 MG TAB PO SCH ×2 (09:01→21:45)
[2018-01-05] MEDS ORDERED: LEVO175T2 PO (12:09)
[2018-01-05 12:29] LABS: AUTOMATED NEUTROPHIL # 14.7 TH/MM3 (1.8-7.7); BASOPHIL # 0.1 TH/MM3 (0-0.2); BASOPHIL % 0.4 % (0.0-2.0); EOSINOPHIL # 0.1 TH/MM3 (0-0.4); EOSINOPHIL % 0.3 % (0.0-4.0); HEMATOCRIT 27.8 % (35.0-46.0); HEMOGLOBIN 9.5 GM/DL (11.6-15.3); LYMPH % 9.6 % (9.0-44.0); LYMPHOCYTE # 1.7 TH/MM3 (1.0-4.8); MEAN CELL VOLUME 84.8 FL (80.0-100.0); MEAN CORPUSCULAR HEMOGLOBIN 28.9 PG (27.0-34.0); MEAN CORPUSCULAR HGB CONC 34.1 % (32.0-36.0); MEAN PLATELET VOLUME 7.6 FL (7.0-11.0); MONO % 6.7 % (0.0-8.0); MONOCYTE # 1.2 TH/MM3 (0-0.9); PLATELET COUNT 478 TH/MM3 (150-450); RED BLOOD COUNT 3.27 MIL/MM3 (4.00-5.30); RED CELL DISTRIBUTION WIDTH 15.3 % (11.6-17.2); WHITE BLOOD COUNT 17.7 TH/MM3 (4.0-11.0)
[2018-01-05] MEDS ORDERED: LANCETS1 MI1 (12:44)
[2018-01-05] MEDS ORDERED: GLUCTES12 (12:44)
[2018-01-05] MEDS ORDERED: INSU1MIS15 (12:44)
--- NOTE | 2018-01-05 12:48 | HHI.PR ---
Subjective Remarks Follow up for pyelonephritis, uncontrolled diabetes. The patient is seen with boyfriend and nurse at bedside. The patient complains of diffuse lower abdominal pain with radiation into bilateral flanks. Denies fevers/chills however Tmax 100.5 this morning. Denies nausea/vomiting or diarrhea. She states its been a few days since she had a bowel movement. Blood glucose in the 70s this morning. She reports labile blood sugars her entire life, however recently at home has been very high in the 200-300s. She states lately she has only been taking Novolog SSI but nothing long acting. She has been on Novolin R in the past as well as Levemir and Lantus. She ran out of medications and has recently been using the same needle for her Novolog insulin. She also reports she feels like her thyroid is getting bigger. She initially reported compliance with her Synthroid, however then later states she just went back on it in the hospital. She states her usual dose of synthroid is 175mcg. She states she has had trouble getting a PCP. She has been thinking about going back to [facility]. Encouraged follow up with PCP and an caustic strength inspector for evaluation of her thyroid. Discussed possible follow up with [facility]. Objective Vitals Vital Signs Date Time Temp Pulse Resp B/P (MAP) Pulse Ox O2 Delivery O2 Flow Rate FiO2 01/05/18 10:00 98.3 90 20 82/53 (63) 100 01/05/18 08:00 98.1 96 17 82/52 (62) 98 01/05/18 06:31 100.5 93 20 90/52 (65) 98 01/05/18 03:43 92 16 89/54 (66) 100 Room Air 01/05/18 01:23 94 15 93/54 (67) 98 Room Air 01/05/18 00:10 95 15 96/57 (70) 97 Room Air 01/04/18 22:40 98 15 96/55 (69) 99 Room Air 01/04/18 20:21 94 15 99/59 (72) 98 Room Air 01/04/18 19:24 89 15 96/58 (71) 100 Room Air 01/04/18 19:12 90 15 87/51 (63) 100 Room Air 01/04/18 17:05 98.1 84 18 90/55 (67) 100 Room Air 01/04/18 17:04 18 01/04/18 14:30 98.9 100 18 98/57 (71) 99 I/O 01/04/18 01/04/18 01/04/18 01/05/18 01/05/18 01/05/18 07:00 15:00 23:00 07:00 15:00 23:00 Intake Total 2100 ml Balance 2100 ml Intake IV Total 2100 ml Result Diagram: 01/04/18 1447 01/05/18 0536 Objective Remarks GENERAL: Well-nourished, well-developed pleasant young female patient in [facility]. SKIN: Warm and dry. No rash. HEENT: Normocephalic. Atraumatic. Pupils equal and round. Mucous membranes pink and moist. Mild goiter. CARDIOVASCULAR: Regular rate and rhythm. No murmur appreciated. RESPIRATORY: No accessory muscle use. Clear to auscultation. Breath sounds equal bilaterally. GASTROINTESTINAL: Abdomen soft, nondistended, mild diffuse lower abdominal TTP. Normoactive bowel sounds x4. MUSCULOSKELETAL: No obvious deformities. Extremities without clubbing, cyanosis , or edema. +Bilateral CVA tenderness, L > R. NEUROLOGICAL: Awake and alert. No obvious cranial nerve deficits. Motor grossly within normal limits. Normal speech. PSYCHIATRIC: Appropriate mood and affect; insight and judgment normal. Medications and IVs Current Medications Medications (Trade) Dose Ordered Sig/Jennifer Route Start Time Stop Time Status Last Admin (NS Flush) 2 ml UNSCH PRN IV FLUSH 01/04/18 18:30 (NS Flush) 2 ml BID IV FLUSH 01/04/18 21:00 01/05/18 09:00 (Zofran Inj) 4 mg Q6H PRN IVP 01/04/18 18:30 (Narcan Inj) 0.4 mg UNSCH PRN IV PUSH 01/04/18 18:30 (Liliane-Colace) 1 tab BID PO 01/04/18 21:00 01/05/18 09:01 (Milk Of Magnesia Liq) 30 ml Q12H PRN PO 01/04/18 18:30 (Senokot) 17.2 mg Q12H PRN PO 01/04/18 18:30 (Dulcolax Supp) 10 mg DAILY PRN RECTAL 01/04/18 18:30 (Lactulose Liq) 30 ml DAILY PRN PO 01/04/18 18:30 Ceftriaxone Sodium 1000 mg/ Sodium Chloride 100 ml @ 200 mls/hr Q24H IV 01/05/18 18:00 (Synthroid) 100 mcg DAILY@0600 PO 01/05/18 06:00 01/05/18 06:58 (Tylenol) 650 mg Q4H PRN PO 01/04/18 18:45 ([place] 5-325 Mg) 1 tab Q4H PRN PO 01/04/18 18:45 ([place] 7.5-325 Mg) 1 tab Q4H PRN PO 01/04/18 18:45 01/05/18 06:58 Sodium Chloride 1,000 ml @ 42 mls/hr [id number] IV 01/04/18 18:45 01/04/18 20:26 (D50w (Vial) Inj) 50 ml UNSCH PRN IV PUSH 01/04/18 18:45 (Glucagon Inj) 1 mg UNSCH PRN OTHER 01/04/18 18:45 (NovoLOG SUPPLEMENTAL SCALE) 1 ACHS SLIDING SCALE SQ 01/04/18 21:00 01/04/18 21:31 (Levemir Inj) 10 units HS SQ 01/04/18 21:00 01/04/18 21:31 A/P Problem List: (1) UTI (lower urinary tract infection) ICD Code: N39.0 - UTI (lower urinary tract infection) Status: Acute (2) Hypothyroidism ICD Code: E03.9 - Hypothyroidism, unspecified (3) Diabetes mellitus ICD Code: E11.9 - Type 2 diabetes mellitus without complications Assessment and Plan 27-year-old -[place] female with past medical history of diabetes mellitus I, hypothyroidism, and marijuana abuse who presents to the emergency department with complaints of chills, lower back pain/flank pain. Patient also presented to the emergency department requesting refills on her medications as she has been out of her levothyroxine and insulin for some time now. Severe Sepsis with Acute Pyelonephritis/UTI: patient meets severe sepsis criteria with WBC 14.6K, tachy HR 100, Tmax 100.5, hypotension BP 82/53, source - pyelonephritis/UTI. -UA positive for occult blood, leukocyte esterase, WBCs -Continue antibiotics with IV Rocephin -check lactic acid, pending -monitor urine culture, adjust antibiotics as appropriate -monitor CBC -continue IVF, increased rate to 100cc/hr -Tylenol prn, [place] prn -patient also with diffuse lower abdominal pain and constipation, suspect secondary to infection; however consider CT abdomen if no improvement on antibiotics Uncontrolled Diabetes mellitus, type 1 with hyperglycemia: Glucose on admission 393, give 8 units of regular insulin IV in the ED. UA positive for ketones and glucose of 1000, B-hydroxybutyrate 3.11. ABG reviewed, no DKA. -Continue diabetic diet -Patient has only been taking SSI at home, likely cause of hyperglycemia -Start on long acting insulin with Levemir 10 units HS -NovoLog insulin sliding scale with Accu-Cheks -BG 74 this morning, patient reports labile blood glucose, monitor closely -Case management consult to assist with medications if possible, patient has been using one dirty needle and only has SSI DEUCE: Creatinine at admission 1.18, previously 0.94 in 2016. -Patient was given 2 L of IV fluids in emergency department -Continue normal saline at 100cc/hr -Repeat labs today show improvement with Cr 0.83 -Continue to monitor, avoid nephrotoxins. Hypothyroidism -TSH 30.5, free T4 0.69 likely abnormal due to noncompliance with levothyroxine -Restart levothyroxine 175mcg qd -Repeat labs in 6 weeks as outpatient -Strongly encouraged to follow up with endocrinology as outpatient Noncompliance: patient reports difficulty with access to PCP and obtaining prescriptions -case management consulted -patient will need refills on all meds and diabetic supplies upon discharge -discussed follow up with [facility] if possible -patient also is going to try to return to [facility] for follow up DVT prophylaxis: teds/SCDs Discharge Planning Not yet ready for discharge. Still with sepsis and symptomatic. Will need urine C&S prior to discharge. Hopefully in 1-2 days. Keysha Dean PA-C Jan 05, 2018 12:48 pm
[2018-01-05] MEDS ORDERED: SODIUM CHLORID 0.9% 500 ML INJ 500 ML IV ONE (16:45)
[2018-01-05] MEDS ORDERED: cefTRIAXone INJ 1,000 MG in SODIUM CHLORIDE 0.9% INJ 100 ML IV SCH (18:00)
[2018-01-05] MEDS: INSULIN DETEMIR 100 UNITS/ML VIAL SQ SCH (22:01)
[2018-01-05] MEDS: SODIUM CHLOR 0.9% 1000 ML INJ 1,000 ML IV SCH (23:49)
[2018-01-06] VITALS: BP 100/55; PULSE 66; RESP 17; TEMP 97.7; O2SAT 98
[2018-01-06 04:00] VITALS: BP 108/57; PULSE 74; RESP 20; TEMP 97.6; O2SAT 100
[2018-01-06] MEDS: ACETAMINOPHEN/HYDROcodone 325 MG/7.5 MG TAB PO PRN (04:17)
[2018-01-06] MEDS: LEVOTHYROXINE SODIUM 125 MCG TAB PO SCH (06:52)
[2018-01-06] MEDS: LEVOTHYROXINE SODIUM 50 MCG TAB PO SCH (06:52)
[2018-01-06] MEDS: INSULIN ASPART SUPPLEMENTAL SCALE SQ SCH ×4 (08:00→22:08)
[2018-01-06 08:30] VITALS: BP 94/67; PULSE 68; RESP 26; TEMP 97.7; O2SAT 97
[2018-01-06] MEDS: SODIUM CHLORIDE 0.9% FLUSH 10 ML FLUSH IV FLUSH SCH ×2 (08:36→21:00)
[2018-01-06] MEDS: DOCUSATE SODIUM 50 MG/SENNA 8.6 MG TAB PO SCH ×2 (08:36→22:08)
[2018-01-06] MEDS: SODIUM CHLOR 0.9% 1000 ML INJ 1,000 ML IV SCH ×2 (08:57→22:19)
--- NOTE | 2018-01-06 09:55 | HHI.PR ---
Subjective Remarks Follow up for pyelonephritis, uncontrolled diabetes. Patient seen and examined , lying in bed with continued complaint of abdominal pain with radiation to her bilateral flanks. Patient has been afebrile overnight. Vital signs are stable. Requesting Aleve rather than p.o. narcotics. Eating well with no complaints of abdominal pain, nausea or vomiting. Blood sugar in the 50s today. Will adjust long-acting insulin. Urine culture growing E. coli, sensitivity noted. ID consulted. Objective Vitals Vital Signs Date Time Temp Pulse Resp B/P (MAP) Pulse Ox O2 Delivery O2 Flow Rate FiO2 01/06/18 04:00 97.6 74 20 108/57 (74) 100 01/06/18 00:00 97.7 66 17 100/55 (70) 98 01/05/18 20:00 98.3 75 20 89/61 (70) 99 01/05/18 17:29 89/59 (69) 01/05/18 16:00 98.9 87 16 79/53 (62) 97 01/05/18 10:00 98.3 90 20 82/53 (63) 100 I/O 01/05/18 01/05/18 01/05/18 01/06/18 01/06/18 01/06/18 07:00 15:00 23:00 07:00 15:00 23:00 Intake Total 1711 ml 1152 ml Output Total 250 ml 500 ml Balance 1461 ml 652 ml Intake Oral 120 ml 300 ml IV Total 1591 ml 852 ml Output Urine Total 250 ml 500 ml # Bowel Movements 0 Result Diagram: 01/05/18 1155 01/06/18 0402 Objective Remarks GENERAL: Well-developed, well-nourished patient with complaint of abdominal pain and bilateral flank pain. SKIN: Warm and dry. No rash. HEAD: Normocephalic. Atraumatic. EYES: Pupils equal and round. No scleral icterus. No injection or drainage. ENT: No nasal bleeding or discharge. Mucous membranes pink and moist. NECK: Supple. Trachea midline. CARDIOVASCULAR: Regular rate and rhythm. S1, S2 noted. No murmur appreciated. RESPIRATORY: No accessory muscle use. Clear to auscultation. Breath sounds equal bilaterally. GASTROINTESTINAL: Abdomen soft, non-tender, nondistended. Normoactive bowel sounds x4. : Mild bilateral CVA tenderness. MUSCULOSKELETAL: No obvious deformities. Extremities without clubbing, cyanosis , or edema. NEUROLOGICAL: Awake and alert. No obvious cranial nerve deficits. Motor grossly within normal limits. 5/5 muscle strength in bilateral upper and lower extremities. Normal speech. PSYCHIATRIC: Appropriate mood and affect; insight and judgment normal. A/P Problem List: (1) UTI (lower urinary tract infection) ICD Code: N39.0 - UTI (lower urinary tract infection) Status: Acute (2) Hypothyroidism ICD Code: E03.9 - Hypothyroidism, unspecified (3) Diabetes mellitus ICD Code: E11.9 - Type 2 diabetes mellitus without complications Assessment and Plan 27-year-old -[place] female with past medical history of diabetes mellitus I, hypothyroidism, and marijuana abuse who presents to the emergency department with complaints of chills, lower back pain/flank pain. Patient also presented to the emergency department requesting refills on her medications as she has been out of her levothyroxine and insulin for some time now. Severe Sepsis with Acute Pyelonephritis/UTI: patient meets severe sepsis criteria with WBC 14.6K, tachy HR 100, Tmax 100.5, hypotension BP 82/53, source - pyelonephritis/UTI. -UA positive for occult blood, leukocyte esterase, WBCs. Urine culture growing ESBL/MDR. ID consulted. Appreciate input recommendations. -Resistant to ceftriaxone. Started on Cipro. Appreciate ID input. -Lactic acid within normal limits. Monitor CBC -continue IVF, NS @ 100cc/hr -Tylenol prn, [place] prn, Aleve as needed. -patient also with diffuse lower abdominal pain and constipation, suspect secondary to infection; however consider CT abdomen if no improvement on antibiotics. Uncontrolled Diabetes mellitus, type 1 with hyperglycemia: Glucose on admission 393, give 8 units of regular insulin IV in the ED. UA positive for ketones and glucose of 1000, B-hydroxybutyrate 3.11. ABG reviewed, no DKA. -Continue diabetic diet -Patient has only been taking SSI at home, likely cause of hyperglycemia -Hypoglycemia overnight. Will change to Levemir 5 units twice daily. Continue to monitor blood sugar trends. Monitor closely. -NovoLog insulin sliding scale with Accu-Cheks. -Case management consult to assist with medications if possible, patient has been using one dirty needle and only has SSI DEUCE: Creatinine at admission 1.18, previously 0.94 in 2016. -Patient was given 2 L of IV fluids in emergency department -Continue normal saline at 100cc/hr -Improvement seen with Cr 0.83 -Continue to monitor, avoid nephrotoxins. Hypothyroidism -TSH 30.5, free T4 0.69 likely abnormal due to noncompliance with levothyroxine -Restart levothyroxine 175mcg qd -Repeat labs in 6 weeks as outpatient -Strongly encouraged to follow up with endocrinology as outpatient Noncompliance: patient reports difficulty with access to PCP and obtaining prescriptions -case management consulted -patient will need refills on all meds and diabetic supplies upon discharge -discussed follow up with [facility] if possible -patient also is going to try to return to [facility] for follow up DVT prophylaxis: teds/SCDs Discharge Planning Not ready for discharge. Still septic. ID to see patient Lorena Wu Jan 06, 2018 09:55
[2018-01-06] MEDS: NAPROXEN 250 MG TAB PO PRN ×2 (11:27→22:19)
[2018-01-06 11:53] LABS: AUTOMATED NEUTROPHIL # 7.6 TH/MM3 (1.8-7.7); BASOPHIL % 0.5 % (0.0-2.0); EOSINOPHIL # 0.1 TH/MM3 (0-0.4); EOSINOPHIL % 0.8 % (0.0-4.0); HEMOGLOBIN 9.7 GM/DL (11.6-15.3); LYMPHOCYTE # 1.3 TH/MM3 (1.0-4.8); MEAN CELL VOLUME 85.1 FL (80.0-100.0); MEAN CORPUSCULAR HEMOGLOBIN 28.5 PG (27.0-34.0); MEAN CORPUSCULAR HGB CONC 33.5 % (32.0-36.0); MEAN PLATELET VOLUME 7.3 FL (7.0-11.0); MONO % 5.1 % (0.0-8.0); MONOCYTE # 0.5 TH/MM3 (0-0.9); NEUT % 79.6 % (16.0-70.0); PLATELET COUNT 486 TH/MM3 (150-450); RED CELL DISTRIBUTION WIDTH 15.5 % (11.6-17.2); WHITE BLOOD COUNT 9.5 TH/MM3 (4.0-11.0)
[2018-01-06 12:15] VITALS: PULSE 82; RESP 22; TEMP 98.6; O2SAT 99
[2018-01-06] MEDS: CIPROFLOXACIN 500 MG TAB PO SCH ×2 (13:01→22:08)
[2018-01-06 16:20] VITALS: PULSE 78; RESP 18; TEMP 98.7; O2SAT 97
[2018-01-06 20:00] VITALS: BP 92/66; PULSE 78; RESP 16; TEMP 98.6; O2SAT 98
[2018-01-06] MEDS: INSULIN DETEMIR 100 UNITS/ML VIAL SQ SCH (22:08)
[2018-01-07] VITALS (7 sets, daily range): BP systolic 87–101; BP diastolic 61–73; PULSE 70–109; RESP 16–22; TEMP 97.6–98.6; O2SAT 95–100
[2018-01-07] MEDS: NAPROXEN 250 MG TAB PO PRN ×2 (05:13→20:17)
[2018-01-07] MEDS: MORPHINE SULFATE 2 MG/ML INJ IV PUSH ONE ×2 (05:43→05:54)
[2018-01-07] MEDS: LEVOTHYROXINE SODIUM 50 MCG TAB PO SCH (05:53)
[2018-01-07] MEDS: LEVOTHYROXINE SODIUM 125 MCG TAB PO SCH (05:54)
[2018-01-07] MEDS: SODIUM CHLOR 0.9% 1000 ML INJ 1,000 ML IV SCH ×2 (08:40→20:21)
[2018-01-07] MEDS: CIPROFLOXACIN 500 MG TAB PO SCH ×2 (08:40→21:31)
[2018-01-07] MEDS: SODIUM CHLORIDE 0.9% FLUSH 10 ML FLUSH IV FLUSH SCH ×2 (08:40→21:00)
[2018-01-07] MEDS: DOCUSATE SODIUM 50 MG/SENNA 8.6 MG TAB PO SCH ×2 (08:40→21:31)
[2018-01-07] MEDS: INSULIN DETEMIR 100 UNITS/ML VIAL SQ SCH ×2 (09:24→21:30)
[2018-01-07] MEDS: INSULIN ASPART SUPPLEMENTAL SCALE SQ SCH ×4 (09:24→21:31)
--- NOTE | 2018-01-07 14:47 | PD.ID.CON ---
History of Present Illness Service ID Consult Requested By Dr Wu Reason for Consult ESBL+ E.coli UTI Primary Care Physician No Primary Care Physician Diagnoses: History of Present Illness Pt is unable to provide meaning ful and reliable history For instance, pt reported me that she had 2 C sections, but was note able to tell me what years she had her children pt is a 27 yo F with IDDM an hypothyroidism who is apparently non compliant and presented with profound hypothroidism state and in DKA WBC count was 14 K on presentation and she had mild fever of 100.5 She was diagnosed with UTI and her culture is positive for ESBL+ E.coli Isolate is S to levaquine, pt is on levaquine and no fevers. WBC is normal Review of Systems ROS Limitations: Poor Historian Past Family Social History Allergies: Coded Allergies: Fish Containing Products (Unverified Allergy, Severe, ITCHING, 01/07/18) denies allergy at this time Past Medical History Hypothyroidism DM I Past Surgical History reportds C sections Active Ordered Medications Medications where reviewed in EMR Antibiotics Include: cipro Family History Denies past family history Social History Tobacco: denies Alcohol: denies Illicit drug use: marijuana, daily Physical Exam Vital Signs Vital Signs Date Time Temp Pulse Resp B/P (MAP) Pulse Ox O2 Delivery O2 Flow Rate FiO2 01/07/18 08:30 98.0 71 22 89/65 (73) 95 01/07/18 04:05 97.6 109 16 97/73 (81) 100 01/07/18 00:45 98.3 72 16 92/69 (77) 98 01/06/18 20:00 98.6 78 16 92/66 (75) 98 01/06/18 16:20 98.7 78 18 97 Physical Exam CONSTITUTIONAL/GENERAL: This is a short statued adequately nourished patient, in no apparent distress. TUBES/LINES/DRAINS: SKIN: No jaundice, rashes, or lesions. Ecchymoses on upper extremities. No wounds seen anteriorly. Skin temperature appropriate. Not diaphoretic. HEAD: Atraumatic. Normocephalic. EYES: Pupils equal and round and reactive. Extraocular motions intact. No scleral icterus. No injection or drainage. Fundi not examined. ENT: Hearing grossly normal. Nose without bleeding or purulent drainage. Throat without visible erythema, exudates, masses, or lesions. NECK: Trachea midline. Supple, nontender. No palpable thyroid enlargement or nodularity. CARDIOVASCULAR: Regular rate and rhythm without murmurs, gallops, or rubs. No JVD. Peripheral pulses symmetric. RESPIRATORY/CHEST: Symmetric, unlabored respirations. Clear to auscultation. Breath sounds equal bilaterally. No wheezes, rales, or rhonchi. GASTROINTESTINAL: Abdomen soft, non-tender, nondistended. No hepato-splenomegaly , or palpable masses. No guarding. Bowel sounds present. GENITOURINARY: Without palpable bladder distension. MUSCULOSKELETAL: Extremities without clubbing, cyanosis, or edema. No joint tenderness or effusion noted. No calf tenderness. No mottling or clubbing. LYMPHATICS: No palpable cervical or supraclavicular adenopathy. NEUROLOGICAL: Awake and alert. Motor and sensory grossly within normal limits. Follows commands. Cognitively not adequate to her age Moves all extremities. PSYCHIATRIC: No obvious anxiety/depression. no apparent hallucinations or other psychotic thought process. Laboratory Date/Time Source Procedure Growth Status 01/04/18 14:43 Urine Clean Catch Urine Culture - Final Escherichia Coli Esbl Positive Multi-Drug Resistant Complete Result Diagram: 01/06/18 1136 01/06/18 0402 Assessment and Plan Assessment and Plan UTI, ESBL+ E.coli S to cipro DKA DM , non compliant Hypothryroidism, non compliant - OK to dc from [facility] - complete 7 days of cipro Joyce Melo MD Jan 07, 2018 14:47
--- NOTE | 2018-01-07 17:46 | HHI.PR ---
Subjective Remarks late entry - patient seen at 11:00 this morning Follow up for pyelonephritis, uncontrolled diabetes. Patient seen and examined. Patient has no acute medical complaints. She denies any chest pain or shortness of breath. She denies any nausea, vomiting or abdominal pain. States she is tolerating diet without any difficulties. She denies any chest pain or shortness of breath. Objective Vitals Vital Signs Date Time Temp Pulse Resp B/P (MAP) Pulse Ox O2 Delivery O2 Flow Rate FiO2 01/07/18 17:00 97.9 73 22 100 01/07/18 12:15 98.2 70 22 87/61 (70) 01/07/18 08:30 98.0 71 22 89/65 (73) 95 01/07/18 04:05 97.6 109 16 97/73 (81) 100 01/07/18 00:45 98.3 72 16 92/69 (77) 98 01/06/18 20:00 98.6 78 16 92/66 (75) 98 I/O 01/06/18 01/06/18 01/06/18 01/07/18 01/07/18 01/07/18 06:59 14:59 22:59 06:59 14:59 22:59 Intake Total 1152 ml 1838 ml 1746 ml Output Total 500 ml 1600 ml Balance 652 ml 1838 ml 146 ml Intake Oral 300 ml 1080 ml 720 ml IV Total 852 ml 758 ml 1026 ml Output Urine Total 500 ml 1600 ml # Voids 6 3 # Bowel Movements 0 2 Result Diagram: 01/06/18 1136 01/06/18 0402 Objective Remarks GENERAL: Well-developed, well-nourished young Mallory female patient, INAD. Awake and alert. Appears comfortable. SKIN: Warm and dry. No rash. HEAD: Normocephalic. Atraumatic. EYES: EOMI. No scleral icterus. No injection or drainage. ENT: No nasal bleeding or discharge. Mucous membranes pink and moist. NECK: Supple. Trachea midline. CARDIOVASCULAR: Regular rate and rhythm. S1, S2 noted. No murmur appreciated. RESPIRATORY: Nonlabored. Clear to auscultation. Breath sounds equal bilaterally. GASTROINTESTINAL: Abdomen soft, non-tender, nondistended. Normoactive bowel sounds x4. : Mild bilateral CVA tenderness. MUSCULOSKELETAL: No obvious deformities. Extremities without clubbing, cyanosis , or edema. NEUROLOGICAL: Awake and alert. No obvious cranial nerve deficits. Motor grossly within normal limits. 5/5 muscle strength in bilateral upper and lower extremities. Normal speech. PSYCHIATRIC: Appropriate mood and affect; insight and judgment normal. Medications and IVs Current Medications Medications (Trade) Dose Ordered Sig/Jennifer Route Start Time Stop Time Status Last Admin (NS Flush) 2 ml UNSCH PRN IV FLUSH 01/04/18 18:30 (NS Flush) 2 ml BID IV FLUSH 01/04/18 21:00 01/07/18 08:40 (Zofran Inj) 4 mg Q6H PRN IVP 01/04/18 18:30 01/05/18 16:43 (Narcan Inj) 0.4 mg UNSCH PRN IV PUSH 01/04/18 18:30 (Liliane-Colace) 1 tab BID PO 01/04/18 21:00 01/07/18 08:40 (Milk Of Magnesia Liq) 30 ml Q12H PRN PO 01/04/18 18:30 01/05/18 15:23 (Senokot) 17.2 mg Q12H PRN PO 01/04/18 18:30 (Dulcolax Supp) 10 mg DAILY PRN RECTAL 01/04/18 18:30 (Lactulose Liq) 30 ml DAILY PRN PO 01/04/18 18:30 (Tylenol) 650 mg Q4H PRN PO 01/04/18 18:45 01/05/18 21:45 (Colby 5-325 Mg) 1 tab Q4H PRN PO 01/04/18 18:45 01/07/18 00:53 (Colby 7.5-325 Mg) 1 tab Q4H PRN PO 01/04/18 18:45 01/06/18 04:17 Sodium Chloride 1,000 ml @ 100 mls/hr Q10H IV 01/04/18 18:45 01/07/18 08:40 (D50w (Vial) Inj) 50 ml UNSCH PRN IV PUSH 01/04/18 18:45 (Glucagon Inj) 1 mg UNSCH PRN OTHER 01/04/18 18:45 (NovoLOG SUPPLEMENTAL SCALE) 1 ACHS SLIDING SCALE SQ 01/04/18 21:00 01/07/18 09:24 (Synthroid) 125 mcg DAILY@0600 PO 01/06/18 06:00 01/07/18 05:54 (Synthroid) 50 mcg DAILY@0600 PO 01/06/18 06:00 01/07/18 05:53 (Naprosyn) 250 mg Q6H PRN PO 01/06/18 09:45 01/07/18 05:13 (Levemir Inj) 5 units Q12HR SQ 01/06/18 21:00 01/07/18 09:24 (Cipro) 500 mg Q12HR PO 01/06/18 11:30 01/07/18 08:40 A/P Problem List: (1) UTI (lower urinary tract infection) ICD Code: N39.0 - UTI (lower urinary tract infection) Status: Acute (2) Hypothyroidism ICD Code: E03.9 - Hypothyroidism, unspecified (3) Diabetes mellitus ICD Code: E11.9 - Type 2 diabetes mellitus without complications Assessment and Plan 27-year-old -[place] female with past medical history of diabetes mellitus I, hypothyroidism, and marijuana abuse who presents to the emergency department with complaints of chills, lower back pain/flank pain. Patient also presented to the emergency department requesting refills on her medications as she has been out of her levothyroxine and insulin for some time now. Severe Sepsis with Acute Pyelonephritis/UTI: patient meets severe sepsis criteria with WBC 14.6K, tachy HR 100, Tmax 100.5, hypotension BP 82/53, source - pyelonephritis/UTI. -Resolved -UA positive for occult blood, leukocyte esterase, WBCs. Urine culture growing ESBL/MDR. Started on Cipro. ID consulted. Appreciate input recommendations. Recommends Cipro x 7 days. -Lactic acid within normal limits. Monitor CBC -discontinue IVF -Tylenol prn, Colby prn, Aleve as needed. Uncontrolled Diabetes mellitus, type 1 with hyperglycemia: Glucose on admission 393, give 8 units of regular insulin IV in the ED. UA positive for ketones and glucose of 1000, B-hydroxybutyrate 3.11. ABG reviewed, no DKA. -much improved -Continue diabetic diet -Patient has only been taking SSI at home, likely cause of hyperglycemia -Continue on Levemir 5 units twice daily. Continue to monitor blood sugar trends. Monitor closely. -NovoLog insulin sliding scale with Accu-Cheks. -Case management consult to assist with medications if possible, patient has been using one dirty needle and only has SSI -Recommend patient see residential building inspector as an outpatient DEUCE: Creatinine at admission 1.18, previously 0.94 in 2016. -Patient was given 2 L of IV fluids in emergency department -resolved -Continue to monitor as indicated, avoid nephrotoxins. Hypothyroidism -TSH 30.5, free T4 0.69 likely abnormal due to noncompliance with levothyroxine -Restarted on levothyroxine 175mcg qd, continue -Repeat labs in 6 weeks as outpatient -Strongly encouraged to follow up with endocrinology as outpatient Noncompliance: patient reports difficulty with access to PCP and obtaining prescriptions -case management consulted -patient will need refills on all meds and diabetic supplies upon discharge -discussed follow up with [facility] if possible -patient also is going to try to return to [facility] for follow up DVT prophylaxis: teds/SCDs Ruthann Altman Jan 07, 2018 17:46
[2018-01-07] MEDS ORDERED: CIPR-9 PO (17:48)
[2018-01-07] MEDS ORDERED: LEVO175T2 PO (17:48)
[2018-01-07] MEDS ORDERED: LEVEMIR SQ (17:48)
--- NOTE | 2018-01-07 17:59 | HHI.DS ---
Discharge Summary Admission Date Jan 04, 2018 at 18:06 Discharge Date: Jan 07, 2018 Admitting Diagnosis DKA, hypothyroidism, urinary tract infection (1) UTI (lower urinary tract infection) ICD Code: N39.0 - UTI (lower urinary tract infection) Status: Acute (2) Pyelonephritis ICD Code: N12 - Tubulo-interstitial nephritis, not specified as acute or chronic (3) Sepsis ICD Code: A41.9 - Sepsis, unspecified organism (4) Urinary tract infection due to extended-spectrum beta lactamase (ESBL) producing Escherichia coli ICD Code: N39.0 - Urinary tract infection, site not specified; B96.29 - Other Escherichia coli [E. coli] as the cause of diseases classified elsewhere; Z16.12 - Extended spectrum beta lactamase (ESBL) resistance (5) Uncontrolled diabetes mellitus ICD Code: E11.65 - Type 2 diabetes mellitus with hyperglycemia (6) Diabetes mellitus ICD Code: E11.9 - Type 2 diabetes mellitus without complications (7) Hypothyroidism ICD Code: E03.9 - Hypothyroidism, unspecified Procedures None Brief History - From Admission 27-year-old female with PMH of DM I hypothyroidism who presents to the emergency department with complaints of back pain and feeling sick. She also endorses chills, denies any fever, nausea, vomiting, diarrhea. She tells me that she is "just not feeling good". States "all I wanted was refills on my medications and now I get all this, it was a mistake coming here" She is visibly irritated and is only answering some of my questions. She is unable to tell me when her back pain began, states it has been there for as long as she can remember. She has been taking Ibuprofen at home with no relief. She denies any dysuria, hematuria, or foul smelling urine. She denies any recent injury to her back or trauma. Reports that she has also been having constipation unable to tell me when her last bowel movement. She denies any diarrhea, black, tarry, or bloody stools. She complains of abdominal pain and generalized pain, rates this 10/10. She tell me "that is all I want to say, I don't want to talk anymore". CBC/BMP: 01/06/18 1136 01/06/18 0402 Significant Findings Laboratory Tests Test 01/04/18 18:40 01/05/18 05:36 01/05/18 11:55 01/05/18 12:32 Arterial Blood Partial Pressure CO2 36 mmHg (38-42) Blood Gas Hemoglobin 9.1 G/DL (12.0-16.0) Albumin 2.4 GM/DL (3.4-5.0) Calcium Level 8.3 MG/DL (8.5-10.1) Alkaline Phosphatase 162 U/L (45-117) Aspartate Amino Transf (AST/SGOT) 7 U/L (15-37) Alanine Aminotransferase (ALT/SGPT) 9 U/L (10-53) White Blood Count 17.7 TH/MM3 (4.0-11.0) Red Blood Count 3.27 MIL/MM3 (4.00-5.30) Hemoglobin 9.5 GM/DL (11.6-15.3) Hematocrit 27.8 % (35.0-46.0) Platelet Count 478 TH/MM3 (150-450) Neutrophils (%) (Auto) 83.0 % (16.0-70.0) Neutrophils # (Auto) 14.7 TH/MM3 (1.8-7.7) Monocytes # (Auto) 1.2 TH/MM3 (0-0.9) Test 01/06/18 04:02 01/06/18 11:36 Random Glucose 71 MG/DL (74-106) Red Blood Count 3.40 MIL/MM3 (4.00-5.30) Hemoglobin 9.7 GM/DL (11.6-15.3) Hematocrit 29.0 % (35.0-46.0) Platelet Count 486 TH/MM3 (150-450) Neutrophils (%) (Auto) 79.6 % (16.0-70.0) PE at Discharge GENERAL: Well-developed, well-nourished young Mallory female patient, INAD. Awake and alert. Appears comfortable. SKIN: Warm and dry. No rash. HEAD: Normocephalic. Atraumatic. EYES: EOMI. No scleral icterus. No injection or drainage. ENT: No nasal bleeding or discharge. Mucous membranes pink and moist. NECK: Supple. Trachea midline. CARDIOVASCULAR: Regular rate and rhythm. S1, S2 noted. No murmur appreciated. RESPIRATORY: Nonlabored. Clear to auscultation. Breath sounds equal bilaterally. GASTROINTESTINAL: Abdomen soft, non-tender, nondistended. Normoactive bowel sounds x4. : Mild bilateral CVA tenderness. MUSCULOSKELETAL: No obvious deformities. Extremities without clubbing, cyanosis , or edema. NEUROLOGICAL: Awake and alert. No obvious cranial nerve deficits. Motor grossly within normal limits. 5/5 muscle strength in bilateral upper and lower extremities. Normal speech. PSYCHIATRIC: Appropriate mood and affect; insight and judgment normal. Pt update on day of discharge Patient seen and examined. Patient has no acute medical complaints. She denies any chest pain or shortness of breath. She denies any nausea, vomiting or abdominal pain. States she is tolerating diet without any difficulties. She denies any chest pain or shortness of breath. Hospital Course Patient with severe sepsis with acute pyelonephritis/UTI and uncontrolled diabetes with glucose of 393 on admission. History of medication noncompliance and difficult access to supplies secondary to lack of insurance coverage. Case management consulted for assistance. Patient started on IV Rocephin. Urine culture grew ESBL/MDR resistant to Rocephin which was discontinued and patient started on Cipro. Initially patient started on long-acting insulin with Levemir 10 units at night which had to be adjusted due to hypoglycemia. Changed to Levemir 5 units twice a day with better control blood sugars. Patient with known history of hypothyroidism with elevated TSH likely due to medication noncompliance. Patient resumed on her levothyroxine dose of 175 g daily. Recommended patient see civil engineering draftsperson as outpatient. Seen in consultation by infectious disease who recommended continuation of Cipro 7 days and cleared for discharge from ID standpoint. Pt Condition on Discharge: Stable Discharge Disposition: Discharge Home Discharge Time: > 30 minutes Discharge Instructions DIET: Follow Instructions for: Diabetic Diet Activities you can perform: Regular-No Restrictions Follow up Referrals: Endocrinology - 1 Week PCP Follow-up - 1 Week with [facility] New Medications: Glucocom Test Strips (Glucocom Test Strips) 1 Clari Clari EA .XX DIRECTED for Blood Sugar Management, #1 Insulin Syringe/U-100/31G X 5/16" 1 ml (Insulin Syringe/U-100/31G X 5/16" 1 ml) 31 Gauge X 5/16" Mis EA .XX DIRECTED for Blood Sugar Management, #1 0 Refills Lancets (Lancets) 1 Mis Mis EA .XX DIRECTED for Blood Sugar Management, #1 0 Refills Ciprofloxacin (Cipro) 500 Mg Tab 500 MG PO Q12HR for INFECTION, #14 TAB Insulin Detemir Inj (Levemir Inj) 1,000 unit/ 10 ML Vial 5 UNITS SQ Q12HR for Blood Sugar Management, #1 VIAL Do not mix with any other Insulin. Continued Medications: Levothyroxine (Levothyroxine) 175 Mcg Tab 175 MCG PO DAILY for Thyroid, #30 TAB 0 Refills (This prescription has been renewed) Discontinued Medications: Insulin Detemir Inj (Levemir Inj) 1,000 unit/ 10 ML Vial 10 UNITS SQ HS for Blood Sugar Management, VIAL 0 Refills Do not mix with any other Insulin. Insulin Human Regular Inj (Novolin R Inj) 1,000 Unit/10 Ml Vial 2-10 UNITS SQ TIDAC PRN for Blood Sugar Management, #10 ML 0 Refills IMPORTANT TO EAT A MEAL WITHIN 30-60 MINUTES OF DOSING Ruthann Altman Jan 07, 2018 17:59
[2018-01-07] MEDS ORDERED: LORazepam 2 MG/ML VIAL IV PUSH ONE (23:00)
[2018-01-08 04:00] VITALS: BP 111/80; PULSE 80; RESP 20; TEMP 98; O2SAT 98
[2018-01-08] MEDS: LEVOTHYROXINE SODIUM 50 MCG TAB PO SCH (06:11)
[2018-01-08] MEDS: LEVOTHYROXINE SODIUM 125 MCG TAB PO SCH (06:11)
[2018-01-08] MEDS: SODIUM CHLOR 0.9% 1000 ML INJ 1,000 ML IV SCH (06:16)
[2018-01-08] MEDS: SODIUM CHLORIDE 0.9% FLUSH 10 ML FLUSH IV FLUSH SCH (09:00)
[2018-01-08] MEDS: DOCUSATE SODIUM 50 MG/SENNA 8.6 MG TAB PO SCH (09:18)
[2018-01-08] MEDS: INSULIN DETEMIR 100 UNITS/ML VIAL SQ SCH (09:18)
[2018-01-08] MEDS: INSULIN ASPART SUPPLEMENTAL SCALE SQ SCH (09:18)
[2018-01-08] MEDS: CIPROFLOXACIN 500 MG TAB PO SCH (09:18)
[2018-01-08 11:57] VITALS: PULSE 77; RESP 18; TEMP 98.1; O2SAT 95
== END 2018-01-08 12:46 | disposition home or self-care (01) ==
LOC: NEPD 14:16 → NEDA 18:06 → INTOOBSV 18:06 → NEDH 22:02 → NEDA 01-05 05:20 → NEDH 01-05 05:20 → H6YA 01-05 10:07
PROVIDERS: ADMIT Hospitalist; ATTEND Hospitalist
DX: A41.9 Sepsis, unspecified organism (principal); R65.20 Severe sepsis without septic shock; N10 Acute pyelonephritis; B96.20 Unspecified Escherichia coli [E. coli] as the cause of diseases classified elsewhere; E10.649 Type 1 diabetes mellitus with hypoglycemia without coma; E10.65 Type 1 diabetes mellitus with hyperglycemia; E10.10 Type 1 diabetes mellitus with ketoacidosis without coma; E03.9 Hypothyroidism, unspecified; N17.9 Acute kidney failure, unspecified; J45.909 Unspecified asthma, uncomplicated; K59.00 Constipation, unspecified; D64.9 Anemia, unspecified; F12.90 Cannabis use, unspecified, uncomplicated; Z91.14 Patient's other noncompliance with medication regimen; Z79.899 Other long term (current) drug therapy; Z79.4 Long term (current) use of insulin
CPT/HCPCS: 36600; 80053; 81001; 82010; 82805; 82947; 82948; 83605; 83690; 84439; 84443; 84703; 85025; 87077; 87086; 87186; 96365; 96372; 96375; 99285; G0378; J0696; J1815; J2060; J2270; J2405; J7030; J7040